=== PATIENT | female | born 1965 | race Caucasian/White ===

== ENCOUNTER 2019-01-21 10:48 | Day surgery (SDC) | payer OTHER ==
[2019-01-20 14:28] VITALS: BMI 30.1
[2019-01-21] VITALS (7 sets, daily range): BP systolic 92–138; BP diastolic 54–79; PULSE 55–69; RESP 14–22; Ht 157.5 cm; Wt 76.0 kg
[~2019-01-21] VITALS: Ht 157.5 cm; Wt 76.0 kg
[~2019-01-21 10:48] MED LIST: SOD CHLORIDE 0.9% 1,000 ML IV SCH; VANCOMYCIN 1 GM (PMX) 250 ML IVPB ONE
--- NOTE | 2019-01-21 14:20 | HPN ---
Date/Time of Note Date/Time of Note DATE: 01/21/19 TIME: 14:20 Interval H&P Admission Note Pt. seen H&P reviewed: No system changes NELLA BADLERRAMA January 21, 2019 14:20
--- NOTE | 2019-01-21 15:25 | PREAC ---
Date/Time of Note Date/Time of Note DATE: 01/21/19 TIME: : Anesthesia Eval and Record Evaluation Time Pre-Procedure Interview DATE: 01/21/19 TIME: 15: Age 53 Sex female NPO: 8 hrs Preoperative diagnosis left forearm cyst Planned procedure excision left forearm cyst Past Medical History Past Medical History: None Surgery & Anesthesia Issues No known issue Meds Anticoagulation: No Beta Sonali within 24 hr: No Reason Beta Sonali not given: Pt. not on B-Sonali No Active Prescriptions or Reported Meds Current Medications Sodium Chloride 1,000 ml @ 75 mls/hr [id number] IV Last administered on 01/21/19at 11:57; Admin Dose 75 MLS/HR; Start 01/21/19 at 07:00; Stop 01/21/19 at 20:19 Meds reviewed: Yes Allergies Coded Allergies: Penicillins (Unverified Allergy, Unknown, 01/21/19) Allergies Reviewed: Yes Labs/Studies Labs Reviewed: Reviewed by anesthesiologist test: Negative Studies: ECG (sr), CXR (nl) Pre-procedure Exam Last vitals Vital Signs Date Temp Pulse Resp B/P (MAP) Pulse Ox O2 O2 Flow FiO2 Time Delivery Rate 01/21/19 98.6 61 16 138/79 98 Room Air 12:13 (98) Airway: Adequate mouth opening Mallampati: Mallampati I Teeth: Normal Lung: Normal Heart: Normal ASA Physical Status ASA physical status: 1 Emergency: None Planned Anesthetic General/MAC: LMA Planned Pain Management Parenteral pain med Pre-operative Attestations Prior to commencing anesthesia and surgery, the patient was re-evaluated, there was verification of: *The patient's identity *The results of appropriate recent lab work and preoperative vital signs *The above evaluation not changing prior to induction *Anesthetic plan, risk benefits, alternative and complications discussed with patient/family; questions answered; patient/family understands, accepts and wishes to proceed. SEVEN LUCIANO MD January 21, 2019 15:25
[2019-01-21] MEDS ORDERED: MEPERIDINE 25 MG INJ IV PRN (15:30)
[2019-01-21] MEDS ORDERED: DIPHENHYDRAMINE 50 MG INJ IV PRN (15:30)
[2019-01-21] MEDS ORDERED: HYDROmorphONE 1 MG/5 ML IV SYRINGE IV PRN ×3 (15:30)
[2019-01-21] MEDS ORDERED: ONDANSETRON 4 MG INJ IV PRN (15:30)
[2019-01-21] MEDS ORDERED: OXYCODONE/ACETAMINOPHEN (5/325) TAB PO PRN ×2 (15:30)
[2019-01-21] MEDS ORDERED: MIDAZOLAM 1 MG/ML 2 ML INJ ONE (15:46)
[2019-01-21] MEDS ORDERED: PROPOFOL 20 ML ONE (15:46)
[2019-01-21] MEDS ORDERED: FENTAnyl 50 MCG/ML VIAL ONE (15:48)
[2019-01-21] MEDS ORDERED: CEFAZOLIN 1 GM INJ ONE (15:51)
[2019-01-21] MEDS ORDERED: LIDOCAINE 1% (MPF) 30 ML INJ ONE (15:54)
[2019-01-21] MEDS ORDERED: BUPIVACAINE 0.25%/EPI (SDV) 30 ML INJ ONE (15:54)
[2019-01-21] MEDS ORDERED: KETOROLAC 30 MG INJ ONE (16:03)
--- NOTE | 2019-01-21 16:34 | OPR ---
Date/Time of Note Date/Time of Note DATE: 01/21/19 TIME: 16:32 Operative Report Procedure Date: January 21, 2019 Preoperative Diagnosis Cyst left forearm Postoperative Diagnosis Same Operation/Procedure Performed Excision of left forearm cyst Rearrangement of local subcutaneous tissue 5 cm Surgeon see signature line Informaticist None Anesthesia Type: general Estimated Blood Loss: minimal Transfusion none Specimen Left forearm cyst Grafts/Implants none Complications none Pt Condition Post Procedure: stable Disposition: PACU Indications Patient has a cyst that is very superficial along the anterior left forearm. In order to for her to have symptomatic relief she will undergo excision. Procedure Description The cyst was in the left forearm and it was roughly 2.5 cm wide. After the left forearm was prepped and draped in a sterile manner timeout was conducted. 20 mL of a mixture of quarter percent Marcaine with epinephrine and 1% lidocaine plain were instilled into the dermis and thereafter an elliptical incision measuring 9 cm was made encompassing the area of the sebaceous cyst. The dermis and the cyst were excised en bloc and thereafterwards the subcutaneous tissue was circumferentially released for a diameter of 5 cm in order to relieve the tension on the patient's dermis and subcutaneous tissue in order to bring it together without tension. Once the local tissue was rearranged the wound was closed using interrupted 3 oh mattress nylon sutures. Wet dry dressings were applied and the incision was covered with Band-Aid. There were no complications all instrument sponge and needle counts were correct at the end of the surgery. NELLA BALDERRAMA January 21, 2019 16:34
--- NOTE | 2019-01-22 10:41 | PAC ---
Date/Time of Note Date/Time of Note DATE: 01/22/19 TIME: 10:41 Post-Anesthesia Notes Post-Anesthesia Note Last documented vital signs Vital Signs Date Temp Pulse Resp B/P (MAP) Pulse Ox O2 O2 Flow FiO2 Time Delivery Rate 01/21/19 97.1 55 18 98/61 (73) 96 16:50 01/21/19 Room Air 16:44 Activity: WNL Respiratory function: WNL Cardiovascular function: WNL Mental status: Baseline Pain reasonably controlled: Yes Hydration appropriate: Yes Nausea/Vomiting absent: No SEVEN LUCIANO MD January 22, 2019 10:41
== END 2019-01-21 17:46 | disposition home or self-care (01) ==
LOC: SDS 10:48
PROVIDERS: ATTEND Surgery Surgical Critical Care
DX: L72.3 Sebaceous cyst (principal); Z88.0 Allergy status to penicillin
CPT/HCPCS: 14020; J0690; J1885; J2250; J3010; Z7512; Z7610; 88304